=== PATIENT | female | born 1995 ===

== ENCOUNTER 2018-09-09 16:19 | Emergency (ER) | payer OTHER ==
[2018-09-09 16:24] VITALS: BMI 40.7
[2018-09-09 16:25] VITALS: RESP 18; TEMP 98.5
[2018-09-09 16:58] LABS: PH,URINE 7.5 (4.7-8.0); URINE BILIRUBIN NEGATIVE (NEGATIVE); URINE BLOOD NEGATIVE (NEGATIVE); URINE GLUCOSE (UA) NEGATIVE (NEGATIVE); URINE LEUKOCYTE ESTERASE NEGATIVE Leu/uL (NEGATIVE); URINE PROTEIN NEGATIVE mg/dL (<30 mg/dL); URINE UROBILINOGEN 0.2 E.U./dL (<1 E.U./dL)
[2018-09-09 17:00] LABS: URINE APPEARANCE SL CLOUDY (CLEAR); URINE COLOR LIGHT YELLOW (YELLOW)
--- NOTE | 2018-09-09 17:10 | ED PDOC ---
Arrival/HPI - General Chief Complaint: Back Pain Time Seen by Provider: 09/09/18 16:21 Historian: Patient - History of Present Illness Narrative History of Present Illness (Text): 09/09/18 17:07 22yo morbidly obese female who present with complaint of sharp intermittent lower back pain x 6days. Notes that pain is usually with ambulation and sitting and relieve with laying down. States she was seen at a different ED yesterday a nd was discharged home with Naprosyn and flexeril prescription without relieve. Notes she did not fill the prescription because she has been taking her sister's Naprosyn without relieve. She denies trauma, focal weakness, urinary symptoms, fever, chills, abdominal pain, urinary/fecal incontinence, saddle anesthesia, any other complaint. Past Medical History - Provider Review Nursing Documentation Reviewed: Yes - Infectious Disease Hx of Infectious Diseases: None - Cardiac Hx Cardiac Disorders: Yes Hx Hypertension: Yes - Pulmonary Hx Respiratory Disorders: No - Neurological Hx Neurological Disorder: No - HEENT Hx HEENT Disorder: No - Renal Hx Renal Disorder: No - Endocrine/Metabolic Hx Endocrine Disorders: No - Hematological/Oncological Hx Blood Disorders: No - Integumentary Hx Dermatological Disorder: No - Musculoskeletal/Rheumatological Hx Musculoskeletal Disorders: No - Gastrointestinal Hx Gastrointestinal Disorders: No - Genitourinary/Gynecological Hx Genitourinary Disorders: No - Psychiatric Hx Psychophysiologic Disorder: No Hx Substance Use: No Family/Social History - Physician Review Nursing Documentation Reviewed: Yes Family/Social History: Unknown Family HX Smoking Status: Light Smoker < 10 Cigarettes Daily Hx Alcohol Use: Yes Frequency of alcohol use: Socially Hx Substance Use: No Allergies/Home Meds Allergies/Adverse Reactions: Allergies No Known Allergies Allergy (Verified 09/09/18 16:23) Home Medications: Home Meds Medication Instructions Recorded Confirmed RX: No Known Home Med 09/09/18 09/09/18 Review of Systems - Physician Review All systems were reviewed & negative as marked: Yes - Review of Systems Constitutional: Normal Eyes: Normal ENT: Normal Respiratory: Normal Cardiovascular: Normal Gastrointestinal: Normal Genitourinary Female: Normal Musculoskeletal: Back Pain Skin: Normal Neurological: Normal Endocrine: Normal Hemo/Lymphatic: Normal Psychiatric: Normal Physical Exam Vital Signs Reviewed: Yes Vital Signs Temp Pulse Resp BP Pulse Ox 09/09/18 16:24 98.5 F 70 18 129/85 96 Temperature: Afebrile Blood Pressure: Normal Pulse: Regular Respiratory Rate: Normal Appearance: Positive for: Well-Appearing, Non-Toxic, Comfortable Pain Distress: None Mental Status: Positive for: Alert and Oriented X 3 - Systems Exam Head: Present: Atraumatic, Normocephalic Pupils: Present: PERRL Extroacular Muscles: Present: EOMI Conjunctiva: Present: Normal Mouth: Present: Moist Mucous Membranes Neck: Present: Normal Range of Motion Respiratory/Chest: Present: Clear to Auscultation, Good Air Exchange. No: Respiratory Distress, Accessory Muscle Use Cardiovascular: Present: Regular Rate and Rhythm, Normal S1, S2. No: Murmurs Abdomen: No: Tenderness, Distention, Peritoneal Signs Back: Present: Normal Inspection, Midline Tenderness. No: Paraspinal Tenderness, Pain with Leg Raise Upper Extremity: Present: Normal Inspection. No: Cyanosis, Edema Lower Extremity: Present: Normal Inspection. No: Edema Neurological: Present: GCS=15, CN II-XII Intact, Speech Normal Skin: Present: Warm, Dry, Normal Color. No: Rashes Psychiatric: Present: Alert, Oriented x 3, Normal Insight, Normal Concentration Medical Decision Making ED Course and Treatment: 09/09/18 18:27 22yo female in ED for lower back pain. Patient is neurologically intact in ED and ambulated to ED. LS xray - IMPRESSION: Unremarkable radiographs of the lumbar spine. UA - Negative Result was DW the pt and she was referred to her PMD/ortho. Advised to do warm compress/shower and take her prescribed Naprosyn/flexeril. she verbalized understanding of all result and instructions. TRT ED for any new or worsening symptoms - Lab Interpretations Lab Results: Lab Results 09/09/18 16:50: Urine Color Light yellow, Urine Appearance Sl cloudy, Urine pH 7.5, Ur Specific [place] 1.020, Urine Protein Negative, Urine Glucose (UA) Negative, Urine Ketones Negative, Urine Blood Negative, Urine Nitrate Negative, Urine Bilirubin Negative, Urine Urobilinogen 0.2, Ur Leukocyte Esterase Negative - RAD Interpretation Radiology Orders: 09/09/18 16:57 LS SPINE WITH OBL > 18 YRS OLD [RAD] Stat - Medication Orders Current Medication Orders: Discontinued Medications Cyclobenzaprine HCl (Flexeril) 10 mg PO STAT STA Stop: 09/09/18 17:00 Dexamethasone (Decadron Inj) 10 mg IM STAT STA Stop: 09/09/18 16:59 Ketorolac Tromethamine (Toradol) 60 mg IM STAT STA Stop: 09/09/18 16:59 Disposition/Present on Arrival - Present on Arrival Any Indicators Present on Arrival: No History of DVT/PE: No History of Uncontrolled Diabetes: No Urinary Catheter: No History of Decub. Ulcer: No History Surgical Site Infection Following: None - Disposition Have Diagnosis and Disposition been Completed?: Yes Diagnosis: Back pain Disposition: HOME/ ROUTINE Disposition Time: 18:20 Patient Plan: Discharge Patient Problems: Current Active Problems Problem Status Onset Back pain Acute Condition: STABLE Discharge Instructions (ExitCare): Low Back Pain (DC) Additional Instructions: Follow up with your Doctor/Orthopedist Return to ED for any new or worsening symptoms Referrals: PCP,NO [Primary Care Provider] - Follow up with primary Frandy Dennis III, MD [Medical Doctor] - Follow up with primary Forms: [employer] ([place]ian)
--- NOTE | 2018-09-09 18:14 | RAD ---
Date of service: She 09/09/2018 PROCEDURE: Radiographs of the Lumbar Spine. HISTORY: back pain COMPARISON: No prior. FINDINGS: BONES: Normal alignment. No listhesis. No fracture. DISC SPACES: Unremarkable. OTHER FINDINGS: None. IMPRESSION: Unremarkable radiographs of the lumbar spine.
[2018-09-09 19:03] VITALS: BP 126/81; PULSE 73; O2SAT 98
== END 2018-09-09 19:02 | disposition home or self-care (01) ==
LOC: MERGE 16:19 → ED 16:19
DX: M54.9 Dorsalgia, unspecified (principal); I10 Essential (primary) hypertension; F17.210 Nicotine dependence, cigarettes, uncomplicated
CPT/HCPCS: 72110; 81003; 96372; 99283; J1100; J1885